=== PATIENT | female | born 1985 | race Caucasian/White ===

== ENCOUNTER 2025-02-12 16:10 | Inpatient (IN) ==
[2025-02-12 17:00] LABS: Hematocrit (blood only) 44.1 % (37.0-47.0); Hemoglobin 14.6 g/dl (12.0-16.0); Immature Granulocytes # (auto) 0.05 K/uL (0.01-0.20); Immature Granulocytes % (auto) 0.4 %; Mean Corpuscular Hemoglobin 26.1 pg (25.0-34.0); Mean Corpuscular Volume 78.8 fL (80.0-100.0); Platelet Count 488 K/uL (130-400); RDW Standard Deviation 43.5 fL (36.4-46.3); Red Blood Count 5.60 M/uL (4.20-5.40); White Blood Count 14.12 K/ul (4.8-10.8)
[2025-02-12 17:21] LABS: Alanine Aminotransferase 69.0 U/L (7-52); Albumin Globulin Ratio 1.0 (0.9-2); Alkaline Phosphatase 55.0 U/L (34-104); Anion Gap 11.0 (3-11); Bilirubin,Total 0.7 mg/dl (0.2-1.0); Blood Urea Nitrogen 7.0 mg/dl (6-23); Calcium 9.6 mg/dl (8.6-10.3); Carbon Dioxide 23.0 mmol/L (21-32); Chloride 104.0 mmol/L (98-107); Creatinine Clr Calc Pharmacy 137.9 ml/min; Globulin 3.9 gm/dl (2.5-4.0); Glucose 125.0 mg/dl (70-99(Fasting)); Potassium 3.7 mmol/L (3.5-5.1); Sodium 138.0 mmol/L (136-145); Total Protein 7.9 gm/dl (6.0-8.3)
[2025-02-12 17:29] LABS: Acetaminophen < 3 ug/ml (10-30); Salicylate < 3.0 mg/dl (3.0-30)
[2025-02-12 17:34] LABS: Thyroid Stimulating Hormone 1.359 uIu/ml (0.300-4.500)
--- NOTE | 2025-02-12 19:00 | Emergency Department Note ---
Impression & Plan Depression with suicidal ideation ED Provider Note NAME: BARRY RO AGE: 39 SEX: F : 1985 ARRIVES VIA: Walk-In INFORMANT: [Patient][, ] ED PROVIDER(S): [Eugenia Medel MD] CHIEF COMPLAINT: Depression, self-harm thoughts HPI: This is a 39-year-old female presenting for depression. Patient states that she has been off of some of her psych meds since October. She has not been in a good mental state since then. She been increasing depressed. Now has a thought to hurt herself without a plan. She has self-harm thoughts as well. She states that the longer she goes to work she think she is going to be and is concerned that she might want to act upon these thoughts. She notes numerous bouts of trauma in her life. ROS: See above HPI for pertinent positives & negatives. A total of [10] systems reviewed and were otherwise negative. PAST MEDICAL HISTORY: [See Below] PAST SURGICAL HISTORY: [See Below] FAMILY HISTORY: [See Below] SOCIAL HISTORY: [See Below] HOME MEDICATIONS: [See Below] ALLERGIES: [See Below] VITALS: See Below PHYSICAL EXAMINATION: General: resting comfortably in no acute distress Head: Normocephalic and atraumatic Eyes: Normal inspection, extraocular muscles intact Ear, nose, throat: Normal external exam Neck: Normal range of motion Respiratory: speaking in full sentences, symmetric chest rise, no respiratory distress Cardiovascular: Regular rate/rhythm Extremities: moves all extremities Neuro: The patient awake and alert, appropriately conversive, symmetric faces, no focal deficits MEDICAL DECISION MAKING: This is a 39-year-old female presenting for depression. Patient has depression, SI without plan of self-harm. She appears to be in crisis in need of inpatient stay. She is comfortable with inpatient referral at this time. With the basic blood to a process for medical screening purposes. - WBC is 14.12, platelet count 488. No life-threatening abnormalities noted on blood work - Medically clear - Patient currently pending psychiatric placement. Care discussed signout to Dr. Calzada pending placement. Differential diagnosis: Psychosis, SI, depression independent History obtained from: Mother Past Med/Surg History Problem List (Updated 02/14/25 @ 00:42 by Eugenia Medel MD) Depression with suicidal ideation (Acute) Traumatic brain injury Herpes Back pain Hyperprolactinemia Schizoaffective disorder Social History Smoking Status: Current every day smoker Tobacco Type: Cigarettes Preferred Language: Slovak Communication Ability: Effective Insulation Nozzleman Required: No Beliefs That Will Affect Care: None Feels Safe at Home: Yes Gender Identity: Female Assistive Devices: None Allergies Allergies Allergy/AdvReac Type Severity Reaction Status Date / Time cephalexin [From Keflex] Allergy Mild Hives Verified 02/12/25 20:07 prednisone AdvReac Unknown Unknown Verified 02/12/25 20:08 Home Meds Home Medications Medication Instructions Recorded Confirmed albuterol sulfate 90 mcg/actuation 90 mcg inhalation UNKNOWN 02/12/25 02/12/25 aerosol inhaler (Ventolin HFA) shortness of breath atorvastatin 80 mg tablet 80 mg PO DAILY 02/12/25 02/12/25 clonazepam 0.5 mg tablet 0.5 mg PO UNKNOWN PRN anxiety 02/12/25 02/12/25 hydrocodone 7.5 mg-acetaminophen 7.5 - 325 tab PO UNKNOWN PRN Pain 02/12/25 02/12/25 325 mg tablet metformin 500 mg tablet 500 mg PO BID 02/12/25 02/12/25 omeprazole 20 mg capsule,delayed 20 mg PO QAM 02/12/25 02/12/25 release ondansetron HCl 4 mg tablet 4 mg PO UNKNOWN PRN Nausea And 02/12/25 02/12/25 Vomiting quetiapine 200 mg tablet 200 mg PO HS 02/12/25 02/12/25 quetiapine 50 mg tablet 50 mg PO DAILY 02/12/25 02/12/25 valacyclovir 1 gram tablet 1,000 mg PO UNKNOWN PRN Herpes 02/12/25 02/12/25 outbreak Results & Data (ED) Vital Signs Vital Signs - 24 hr 02/12/25 16:12 02/12/25 18:19 Temperature 36.8 C Temperature Source Skin Pulse Rate 107 H Pulse Rate [Finger] 95 H Pulse Rhythm [Finger] Regular Pulse Strength [Finger] Normal Respiratory Rate 16 18 Respiratory Effort / Characteristics Non-Labored Spontaneous Non-Labored Spontaneous Respiratory Depth Normal Normal Respiratory Pattern Regular Regular Blood Pressure 160/100 H Blood Pressure [Left Arm] 137/92 Blood Pressure Mean 120 Blood Pressure Mean [Left Arm] 107 Blood Pressure Position [Left Arm] Sitting Pulse Oximetry 97 98 Oxygen Delivery Method Room Air Room Air Sepsis Recent Fever Within 48 Hours No Sepsis New/Unexplained Change in Mental Status N/A Sepsis Action Taken by Nursing No Action Required Laboratory Data 02/12/25 16:40 02/12/25 16:40 Lab Results 02/12/25 02/12/25 Range/Units 16:40 18:42 WBC 14.12 H (4.8-10.8) K/ul RBC 5.60 H (4.20-5.40) M/uL Hgb 14.6 (12.0-16.0) g/dl Hct 44.1 (37.0-47.0) % MCV 78.8 L (80.0-100.0) fL MCH 26.1 (25.0-34.0) pg MCHC 33.1 (32.0-36.0) g/dL RDW Std Deviation 43.5 (36.4-46.3) fL RDW Coeff of [place] 15.2 H (11.5-14.5) % Plt Count 488 H (130-400) K/uL MPV 8.9 L (9.4-12.4) fL Immature Gran % (Auto) 0.4 % Neut % (Auto) 73.5 % Lymph % (Auto) 19.3 % [place] % (Auto) 5.9 % Eos % (Auto) 0.4 % Baso % (Auto) 0.5 % Neut # (Auto) 10.39 H (1.40-6.50) K/uL Lymph # (Auto) 2.72 (1.20-3.40) K/uL [place] # (Auto) 0.84 H (0.11-0.59) K/uL Eos # (Auto) 0.05 (0.00-0.50) K/uL Baso # (Auto) 0.07 (0.00-0.20) K/uL Immature Gran # (Auto) 0.05 (0.01-0.20) K/uL Sodium 138 (136-145) mmol/L Potassium 3.7 (3.5-5.1) mmol/L Chloride 104 (98-107) mmol/L Carbon Dioxide 23 (21-32) mmol/L Anion Gap 11 (3-11) BUN 7 (6-23) mg/dl Creatinine 0.69 (0.6-1.2) mg/dl Est Cr Clr Drug Dosing 137.9 ml/min eGFR 113.85 BUN/Creatinine Ratio 10.1 (10-20) Glucose 125 H (70-99(Fasting)) mg/dl Calcium 9.6 (8.6-10.3) mg/dl Total Bilirubin 0.7 (0.2-1.0) mg/dl AST 37 (13-39) U/L ALT 69 H (7-52) U/L Alkaline Phosphatase 55 (34-104) U/L Total Protein 7.9 (6.0-8.3) gm/dl Albumin 4.0 (3.4-5.0) gm/dl Globulin 3.9 (2.5-4.0) gm/dl Albumin/Globulin Ratio 1.0 (0.9-2) TSH 1.359 (0.300-4.500) uIu/ml POC Ur Test NEG (NEG) Salicylates < 3.0 L (3.0-30) mg/dl Acetaminophen < 3 L (10-30) ug/ml Ethyl Alcohol mg/dL < 10.0 (<10.0) mg/dl Administered Medications Acetaminophen (Acetaminophen 325 Mg Tab) 650 mg PO Q4H PRN PRN Reason: Headache or Minor Fever Stop: 03/14/25 22:09 Last Admin: 02/13/25 13:21 Dose: 650 mg Documented By: Admin: 02/12/25 22:44 Dose: 650 mg Documented By: ANDRIY Atorvastatin Calcium (Atorvastatin 40 Mg Tab) 80 mg PO [facility] Stop: 03/15/25 08:59 Last Admin: 02/13/25 08:35 Dose: 80 mg Documented By: PAULETTE Clonazepam (Clonazepam 0.5 Mg Tab) 0.5 mg PO BID PRN PRN Reason: Anxiety Stop: 03/14/25 22:13 Last Admin: 02/12/25 22:42 Dose: 0.5 mg Documented By: ANDRIY Hydroxyzine HCl (Hydroxyzine Hcl 25 Mg Tab) 50 mg PO HSZ PRN PRN Reason: Insomnia Stop: 03/14/25 22:09 Last Admin: 02/13/25 02:05 Dose: 50 mg Documented By: Admin: 02/13/25 00:44 Dose: 50 mg Documented By: ANDRIY Lidocaine (Lidocaine 5% 1 Patch) 1 patch TD [facility] Stop: 03/15/25 14:14 Last Admin: 02/13/25 15:44 Dose: 1 patch Documented By: [id number] Metformin HCl (Metformin Hcl 500 Mg Tab) 500 mg PO BIDM [facility] Stop: 03/15/25 17:44 Last Admin: 02/13/25 17:37 Dose: 500 mg Documented By: [id number] Miskdaneous (Remove Nicoderm Patch) 1 each N/A DAILY@2100 JOSEF Stop: 03/15/25 20:59 Last Admin: 02/13/25 22:20 Dose: 1 each Documented By: [id number] Candecellaneous (Remove Lidoderm Patch) 1 each N/A DAILY@2100 [facility] Stop: 03/15/25 20:59 Last Admin: 02/13/25 22:20 Dose: 1 each Documented By: [id number] Nicotine (Nicotine 21 Mg/24 Hr Tdsy) [facility] Stop: 03/15/25 08:59 Last Admin: 02/13/25 10:15 Dose: 1 patch Documented By: PAULETTE Nicotine Polacrilex (Nicotine Polacrilex 2 Mg Gum) 2 piece MT Q2H PRN PRN Reason: smoking cessation Stop: 03/14/25 22:30 Last Admin: 02/13/25 21:04 Dose: 2 piece Documented By: [id number] Admin: 02/13/25 15:21 Dose: 2 piece Documented By: Admin: 02/13/25 13:23 Dose: 2 piece Documented By: Admin: 02/12/25 22:42 Dose: 2 piece Documented By: ANDRIY Quetiapine Fumarate (Quetiapine Fumarate 25 Mg Tablet) 25 mg PO [facility] Stop: 03/15/25 21:59 Last Admin: 02/13/25 22:17 Dose: 25 mg Documented By: [id number] Discharge Plan Visit Data Chief Complaint: Mental Health Evaluation Stated Complaint: REF BY ED Provider: Erick Calzada Discharge Problem: Depression with suicidal ideation Patient Disposition: Admitted As Inpatient Condition: Fair Discharge Instructions Interventions: ED Discharge Assessment Last Done: 02/12/25 21:24
[2025-02-12 19:02] LABS: Appearance Urine Clear (Clear); Bacteria Urine Automated 1+ (None Seen); Cast Urine Automated 0-2 /lpf (0-2); Glucose Urine UA Negative (Negative); RBC Urine Automated 0-2 /hpf (0-2); WBC Urine Automated 0-5 /hpf (0-5)
[2025-02-12 19:21] LABS: Amphetamines+Metham, Urine Neg (Neg); MDMA (Ecstacy), Urine Neg (Neg); Marijuana, Urine Pos (Neg)
--- NOTE | 2025-02-12 20:37 | Emergency Department Note ---
ED Visit Note 2036: Signout from Dr. Medel. 39-year-old female depressed 201. Patient medically cleared. Awaiting psychiatric evaluation and placement. 2119: Patient admitted to [facility]. .
[2025-02-12] MEDS ORDERED: MAGNESIUM HYDROXIDE SUSP 30 ML UDC PO PRN (22:10)
[2025-02-12] MEDS ORDERED: ALUMINUM/MAGNESIUM SUSP 30 ML UDC PO PRN (22:10)
[2025-02-12] MEDS ORDERED: BISMUTH SUBSALICYLATE 262 MG CHEW PO PRN (22:10)
[2025-02-12] MEDS ORDERED: SODIUM CHLORIDE 0.65% NA SOLN 45 ML (OCEAN) PRN (22:10)
[2025-02-12] MEDS: NICOTINE POLACRILEX 2 MG GUM MT PRN (22:42)
[2025-02-12] MEDS: clonazePAM 0.5 MG TAB PO PRN (22:42)
[2025-02-12] MEDS: ACETAMINOPHEN 325 MG TAB PO PRN (22:44)
[2025-02-13] MEDS: ATORVASTATIN 40 MG TAB PO SCH (08:35)
[2025-02-13] MEDS: NICOTINE 21 MG/24 HR TDSY TD SCH (10:15)
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
[2025-02-13] MEDS: LIDOCAINE 5% 1 PATCH TD SCH (15:44)
[2025-02-13] MEDS: REMOVE NICODERM PATCH SCH (22:20)
[2025-02-13] MEDS: REMOVE LIDODERM PATCH SCH (22:20)
[2025-02-14 08:14] LABS: Hemoglobin A1C 6.1 % (4.5-5.6)
[2025-02-14 08:21] LABS: Cholesterol 182.0 mg/dl (0-200); HDL Cholesterol 39.0 mg/dl; Triglycerides 123.0 mg/dl (0-150)
[2025-02-14] MEDS ORDERED: BENZOCAINE 20% (ORAJEL) 11.9 GM TUBE MT PRN (11:17)
--- NOTE | 2025-02-14 13:52 | Psychiatric Progress Note ---
Date of Service February 14, 2025 Impression / Recommendations Impression By history, Schizoaffective Disorder Bipolar Type vs Mood/Psychotic Disorder due to Traumatic Brain Injury. Possible contribution from use of cannabis. r/o Generalized Anxiety Disorder. R/o Right big toe paronychia. Mouth Ulcers. Overall I spent a total of 35 minutes on this assessment including review of chart records, discussion in team meeting,obtaining collateral information, review of lab work, direct evaluation of the patient, counseling the patient, ordering medication, risk assessment, and documentation in the electronic health record. (1) Schizoaffective disorder: (2) Hyperprolactinemia: (3) Back pain: (4) Herpes: (5) Traumatic brain injury: Plan 02/14/25 Monitor BP. Increased Seroquel to 50mg qhs. Orajel prn for mouth ulcers Hospitalist consult requested for right big toe inflammation. 02/13/25 Admitted to [facility] ([facility]) on q15 min checks (behavioral with suicide precautions) for safety. Group, recreational, and milieu therapies + individual and family sessions as appropriate. HBA1c, fasting lipid profile, prolactin level ordered. Resume Seroquel 25mg qhs with plan to titrate as tolerated. Have discussed alternatives such as Lamictal. Continue prn clonazepam for anxiety. Next Invega Hayfera shot due late April/early May (last administered Dec 02 2024). Continue other home medications at current doses. Inventory Assets Strengths: History of being engaged in treatment. Supportive mother and boyfriend. Stable housing. Good response to medication. Denied suicide attempts. Needs: Stabilization. Suicide Risk Level Suicide Risk Level: Moderate (q15 min suicide checks) Risk Factors Assessment Male: No : Yes Do You Have Access To A Gun?: No Health Problems: Yes Mental Health Diagnoses: Yes Substance Use Disorders: No (occasional cannabis use reported) Previous Attempt: No Family History of Suicide: Yes Previous Psychiatric Hospitalization: Yes Hopelessness: No Protective Factors Assessment : No (stable relationship since 2019) Responsible for Young Children: No Employed: No Stable Relationships: Yes Supportive Family: Yes Good Rapport with Provider: Yes Absence of Any Risk Factors Above: No Interval History Identifying Information 39-year-old F who currently lives in with her mother and boyfriend, has a history of Schizoaffective disorder, s/p TBI, irregular menstrual cycles, herpes. She was admitted on 02/12/25 21:31 on a 201 voluntary commitment for depressed mood, panic symptoms, and suicidal ideation over the past 3months. Chief Complaint "My mouth hurts and I have something wrong with my toe". Review of Systems Notes Right big toe examined: some signs of inflammation noted: toe skin is reddened around the bed of the toenail. Not warm to touch. Slight fluctuance noted. Looks inflamed compared to the left big toe. Pt reports pain on light palpation. Sleep Information Total Hours of Sleep: 6 Meal Information Percent Meal Consumed - Breakfast: 100 Percent Meal Consumed - Lunch: 80 Percent Meal Consumed - Dinner: 50 Subjective Subjective Patient was seen & assessed and interval progress reviewed with treatment team. Staff reports she was tearful last night when she couldn't reach her mom. She expressed feeling anxious but mood improved after she processed with staff. She attended groups and engaged well with peers and in unit activities. She denied paranoia but remains anxious and dysphoric in her mood. The morning, she complained of pain in her gums from ulcers. She also complained of her right big toe appearing black. BP noted to be elevated this morning (160s-170s/90s - 110s). Repeat BP at 1402hrs: 140/85 pulse 97. Labs: HBA1c 6.1, fasting blood sugar 102, fasting lipids within normal limits Prolactin level 47.68 (within normal limits). Physical Exam Psychiatric Orientation: alert, oriented to person, oriented to place, oriented to time and cooperative Apperance: appropriately dressed, appropriately groomed and appeared stated age Eye Contact: good eye contact Motor Behavior: steady gait and station and no abnormal motor movements Speech: normal rate/rhythm/volume of speech Affect: + depressed affect, + anxious affect and mood congruent with affect Mood: + depressed mood, + anxious mood and + dysphoric mood Thought Process: goal directed thought process, clear/coherent thought process and + circumstantial thought process Thought Content: + preoccupation Suicidal Thoughts: denies suicidal thoughts, denies suicidal plan and denies suicidal intent Homicidal Thoughts: denies homicidal thoughts, denies homicidal plan and denies homicidal intent Hallucinations: + auditory hallucinations, + visual hallucinations and + tactile hallucinations Cognition: recent memory grossly intact, remote memory grossly intact, attention grossly intact and language grossly intact Estimated Intelligence: average estimated intelligence and consistent with education level Insight: good insight Judgment: good judgement Vital Signs (Past 24 Hours) Last Vital Signs Temp 36.9 C 02/14/25 06:28 Pulse 82 02/14/25 06:28 Resp 18 02/14/25 06:28 BP 171/116 H 02/14/25 06:28 Pulse Ox 96 02/14/25 06:28 O2 Del Method Room Air 02/14/25 06:28 Results & Data ([facility]) Laboratory Results Laboratory Results - last 24 hr 02/14/25 07:49 Fasting Glucose 102 H Estimat Average Glucose 128 Hemoglobin A1c 6.1 H Triglycerides 123 Cholesterol 182 LDL Cholesterol, Calc 118 VLDL Cholesterol, Calc 25 HDL Cholesterol 39 Cholesterol/HDL Ratio 4.7 Prolactin 47.68 Current Inpatient Medications Current Inpatient Medications: Current Inpatient Medications Acetaminophen (Acetaminophen 325 Mg Tab) 650 mg PO Q4H PRN PRN Reason: Headache or Minor Fever Stop: 03/14/25 22:09 Last Admin: 02/13/25 13:21 Dose: 650 mg Al Hydrox/Mg Hydrox/Simethicone (Aluminum/Magnesium Susp 30 Ml Udc) 30 ml PO Q4H PRN PRN Reason: GI Upset Stop: 03/14/25 22:09 Atorvastatin Calcium (Atorvastatin 40 Mg Tab) 80 mg PO QAM JOSEF Stop: 03/15/25 08:59 Last Admin: 02/14/25 09:03 Dose: 80 mg Benzocaine (Benzocaine 20% (Orajel) 11.9 Gm Tube) 1 appln MT Q6H PRN PRN Reason: To gum ulcers Stop: 03/16/25 11:16 Bismuth Subsalicylate (Bismuth Subsalicylate 262 Mg Chew) 2 tab PO Q30M PRN PRN Reason: Loose Stool/Diarrhea Stop: 03/14/25 22:09 Clonazepam (Clonazepam 0.5 Mg Tab) 0.5 mg PO BID PRN PRN Reason: Anxiety Stop: 03/14/25 22:13 Last Admin: 02/12/25 22:42 Dose: 0.5 mg Hydroxyzine HCl (Hydroxyzine Hcl 25 Mg Tab) 50 mg PO HSZ PRN PRN Reason: Insomnia Stop: 03/14/25 22:09 Last Admin: 02/13/25 02:05 Dose: 50 mg Hydroxyzine HCl (Hydroxyzine Hcl 25 Mg Tab) 25 mg PO Q4H PRN PRN Reason: Anxiety Stop: 03/14/25 22:09 Lidocaine (Lidocaine 5% 1 Patch) 1 patch TD QAM COUNT INCLUDES [facility] Stop: 03/15/25 14:14 Last Admin: 02/14/25 09:03 Dose: 1 patch Magnesium Hydroxide (Magnesium Hydroxide Susp 30 Ml Udc) 30 ml PO DAILY PRN PRN Reason: Constipation Stop: 03/14/25 22:09 Metformin HCl (Metformin Hcl 500 Mg Tab) 500 mg PO BIDM COUNT INCLUDES THE [facility] Stop: 03/15/25 17:44 Last Admin: 02/14/25 09:04 Dose: 500 mg Miscellaneous (Remove Nicoderm Patch) 1 each N/A DAILY@2099 COUNT INCLUDES THE [facility] Stop: 03/15/25 20:59 Last Admin: 02/13/25 22:20 Dose: 1 each Miscellaneous (Remove Lidoderm Patch) 1 each N/A DAILY@2100 COUNT INCLUDES THE [facility] Stop: 03/15/25 20:59 Last Admin: 02/13/25 22:20 Dose: 1 each Nicotine (Nicotine 21 Mg/24 Hr Tdsy) 1 patch TD QAM COUNT INCLUDES THE [facility] Stop: 03/15/25 08:59 Last Admin: 02/14/25 09:04 Dose: 1 patch Nicotine Polacrilex (Nicotine Polacrilex 2 Mg Gum) 2 piece MT Q2H PRN PRN Reason: smoking cessation Stop: 03/14/25 22:30 Last Admin: 02/14/25 13:38 Dose: 1 piece Quetiapine Fumarate (Quetiapine Fumarate 25 Mg Tablet) 50 mg PO HS COUNT INCLUDES THE [facility] Stop: 03/16/25 21:59 Sodium Chloride (Sodium Chloride 0.65% Na Soln 45 Ml ([place])) 1 - 2 sprays NA PRN PRN PRN Reason: Nasal Dryness/Congestion Stop: 03/14/25 22:09 Mental Health & Subst Abuse Tx Psychiatrist Name of Psychiatrist: Dr. Damian Juarez Psychiatrist's Therapist Name of Therapist: n/a Software Test Analyst Name of Software Test Analyst: n/a Post Discharge Appointments Primary Care Physician Name Of Family Doctor/PCP: Dr. Pond Primary Care Contact Information Discharge Discharge Address: [address] [place] [address]
--- NOTE | 2025-02-15 09:37 | Psychiatric Progress Note ---
Date of Service February 15, 2025 Impression / Recommendations Impression Diagnostically consistent with Schizoaffective Disorder Bipolar Type vs Mood/Psychotic Disorder due to Traumatic Brain Injury. Possible contribution from use of cannabis. Also suspect Generalized Anxiety Disorder. A: Some improvement in SI and psychosis but she remains anxious and easily overwhelmed with some thought blocking. Struggles to organize her thoughts and identify ongoing symptoms. 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 Hospitalist recommending amlodipine trial for elevated BP so will start this. Tolerating higher dose of Seroquel with some improvement in sleep. Overall, I spent a total of 50 minutes on this case including meeting with the patient, reviewing the chart, nursing report, multidisciplinary team meeting, orders, and documentation. (1) Schizoaffective disorder: (2) Hyperprolactinemia: (3) Back pain: (4) Herpes: (5) Traumatic brain injury: Plan 02/15/2025: -Start amlodipine 5mg daily -Podiatry consult Monday, appreciate hospitalist recommendations, will offer foot soaks as possible 02/14/25 Monitor BP. Increased Seroquel to 50mg qhs. Orajel prn for mouth ulcers Hospitalist consult requested for right big toe inflammation. 02/13/[address] [facility] ([facility]) on q15 min checks (behavioral with suicide precautions) for safety. Group, recreational, and milieu therapies + individual and family sessions as appropriate. HBA1c, fasting lipid profile, prolactin level ordered. Resume Seroquel 25mg qhs with plan to titrate as tolerated. Have discussed alternatives such as Lamictal. Continue prn clonazepam for anxiety. Next Invega Hayfera shot due late April/early May (last administered Dec 02 2024). Continue other home medications at current doses. Inventory Assets Strengths: History of being engaged in treatment. Supportive mother and boyfriend. Stable housing. Good response to medication. Denied suicide attempts. Needs: Stabilization. Suicide Risk Level Suicide Risk Level: Moderate (q15 min suicide checks) (depression with SI but lessening and feels safe and able to ask for support) Risk Factors Assessment Male: No : Yes Do You Have Access To A Gun?: No Health Problems: Yes Mental Health Diagnoses: Yes Substance Use Disorders: No (occasional cannabis use reported) Previous Attempt: No Family History of Suicide: Yes Previous Psychiatric Hospitalization: Yes Hopelessness: No Protective Factors Assessment : No (stable relationship since 2019) Responsible for Young Children: No Employed: No Stable Relationships: Yes Supportive Family: Yes Good Rapport with Provider: Yes Absence of Any Risk Factors Above: No Interval History Identifying Information 39-year-old F who currently lives in with her mother and boyfriend, has a history of Schizoaffective disorder, s/p TBI, irregular menstrual cycles, herpes. She was admitted on 02/12/25 21:31 on a 201 voluntary commitment for depressed mood, panic symptoms, and suicidal ideation over the past 3months. Chief Complaint "Ok". Review of Systems Sleep Information Total Hours of Sleep: 6.25 Meal Information Percent Meal Consumed - Breakfast: 100 Percent Meal Consumed - Lunch: 80 Percent Meal Consumed - Dinner: 100 Subjective Subjective Patient was seen & assessed and interval progress reviewed with nursing and social work. Attending groups. Some anxiety last evening and got prn Klonopin dose. Today reports some improvement in SI and psychotic symptoms since admission. Notes reduced pacing and restlessness, but still "talking at people a lot". Concerned about symptom management between long-acting injectable doses, experiencing tearfulness, agitation, and mood swings as medication wears off. Reports Seroquel dose increase helpful for sleep but she's not sure it will help with mood fluctuations. Denies voices or reality distortion. Notes excessive sweating in mornings and increased heat sensations, she wonders if this is related to her blood pressure. Seen by hospitalist for new issue with right big toenail redness and irritation. She reports poor response to po risperidone and po Invega in the past between Invega KARIMI doses. Physical Exam Psychiatric Orientation: alert, oriented to person, oriented to place, oriented to time and cooperative Apperance: appropriately dressed, appropriately groomed and appeared stated age Eye Contact: good eye contact Motor Behavior: steady gait and station and no abnormal motor movements Speech: normal rate/rhythm/volume of speech Affect: + depressed affect, + anxious affect and mood congruent with affect Mood: + depressed mood and + anxious mood Thought Process: + circumstantial thought process and + concrete thought process Thought Content: + preoccupation Suicidal Thoughts: denies suicidal thoughts, denies suicidal plan and denies suicidal intent Homicidal Thoughts: denies homicidal thoughts, denies homicidal plan and denies homicidal intent Hallucinations: no auditory hallucinations, no visual hallucinations and no tactile hallucinations Cognition: recent memory grossly intact, remote memory grossly intact, attention grossly intact and language grossly intact Insight: + limited insight Judgment: + fair judgement Vital Signs (Past 24 Hours) Last Vital Signs Temp 36.6 C 02/15/25 06:00 Pulse 103 H 02/15/25 06:28 Resp 18 02/15/25 06:00 BP 162/111 H 02/15/25 06:28 Pulse Ox 99 02/15/25 06:00 O2 Del Method Room Air 02/15/25 06:00 Results & Data ([facility]) Laboratory Results Laboratory Results - last 24 hr 02/14/25 19:30 POC Glucose 108 H Current Inpatient Medications Current Inpatient Medications: Current Inpatient Medications Acetaminophen (Acetaminophen 325 Mg Tab) 650 mg PO Q4H PRN PRN Reason: Headache or Minor Fever Stop: 03/14/25 22:09 Last Admin: 02/13/25 13:21 Dose: 650 mg Al Hydrox/Mg Hydrox/Simethicone (Aluminum/Magnesium Susp 30 Ml Udc) 30 ml PO Q4H PRN PRN Reason: GI Upset Stop: 03/14/25 22:09 Atorvastatin Calcium (Atorvastatin 40 Mg Tab) 80 mg PO QAM JOSEF Stop: 03/15/25 08:59 Last Admin: 02/15/25 09:07 Dose: 80 mg Benzocaine (Benzocaine 20% (Orajel) 11.9 Gm Tube) 1 appln MT Q6H PRN PRN Reason: To gum ulcers Stop: 03/16/25 11:16 Bismuth Subsalicylate (Bismuth Subsalicylate 262 Mg Chew) 2 tab PO Q30M PRN PRN Reason: Loose Stool/Diarrhea Stop: 03/14/25 22:09 Clonazepam (Clonazepam 0.5 Mg Tab) 0.5 mg PO BID PRN PRN Reason: Anxiety Stop: 03/14/25 22:13 Last Admin: 02/14/25 19:33 Dose: 0.5 mg Hydroxyzine HCl (Hydroxyzine Hcl 25 Mg Tab) 50 mg PO HSZ PRN PRN Reason: Insomnia Stop: 03/14/25 22:09 Last Admin: 02/13/25 02:05 Dose: 50 mg Hydroxyzine HCl (Hydroxyzine Hcl 25 Mg Tab) 25 mg PO Q4H PRN PRN Reason: Anxiety Stop: 03/14/25 22:09 Lidocaine (Lidocaine 5% 1 Patch) 1 patch TD QAM [facility] Stop: 03/15/25 14:14 Last Admin: 02/15/25 08:22 Dose: 1 patch Magnesium Hydroxide (Magnesium Hydroxide Susp 30 Ml Udc) 30 ml PO DAILY PRN PRN Reason: Constipation Stop: 03/14/25 22:09 Metformin HCl (Metformin Hcl 500 Mg Tab) 500 mg PO BIDM [facility] Stop: 03/15/25 17:44 Last Admin: 02/15/25 09:07 Dose: 500 mg Miscellaneous (Remove Nicoderm Patch) 1 each N/A DAILY@2100 [facility] Stop: 03/15/25 20:59 Last Admin: 02/15/25 08:22 Dose: 1 each Miscellaneous (Remove Lidoderm Patch) 1 each N/A DAILY@2100 JOSEF Stop: 03/15/25 20:59 Last Admin: 02/15/25 08:21 Dose: 1 each Nicotine (Nicotine 21 Mg/24 Hr Tdsy) 1 patch TD QAM [facility] Stop: 03/15/25 08:59 Last Admin: 02/15/25 08:17 Dose: 1 patch Nicotine Polacrilex (Nicotine Polacrilex 2 Mg Gum) 2 piece MT Q2H PRN PRN Reason: smoking cessation Stop: 03/14/25 22:30 Last Admin: 02/14/25 13:38 Dose: 1 piece Quetiapine Fumarate (Quetiapine Fumarate 25 Mg Tablet) 50 mg PO HS [facility] Stop: 03/16/25 21:59 Last Admin: 02/14/25 22:17 Dose: 50 mg Sodium Chloride (Sodium Chloride 0.65% Na Soln 45 Ml ([place])) 1 - 2 sprays NA PRN PRN PRN Reason: Nasal Dryness/Congestion Stop: 03/14/25 22:09 Mental Health & Subst Abuse Tx Psychiatrist Name of Psychiatrist: Dr. Damian Juarez Psychiatrist's Therapist Name of Therapist: n/a Static Balancer Name of Static Balancer: n/a Post Discharge Appointments Primary Care Physician Name Of Family Doctor/PCP: Dr. Pond Primary Care Contact Information Discharge Discharge Address: [address] [place] [address] [place] [id number]
--- NOTE | 2025-02-15 09:57 | Consultation ---
Date of Consultation February 15, 2025 Assessment & Plan (1) Toe pain, right: (2) Pincer nail deformity: Plan Ms. Triana is a 39 year old woman with history of HLD, DMTII, GERD, Bipolar disorder who is currently admitted to [facility] for management of mood disorder for depressed mood and SI. Medicine consulted for concerns of right great toe redness and inflammation. On exam, there does not appear to be signs of infection/cellulitis. The nail is thick and does appear to be pinching inward along the longitudinal axis. Contingent on anticipated duration of admission, can consider podiatry as this can cause discomfort and can be progressive in nature. As far as blood pressure, multiple contributing/cofounding factors given nature of current admission. If sustaining >140, could consider addition of amlodipine 5mg (or Lisinopril 2.5mg) depending on other medications being adjusted at this time. Would recommend PCP follow up upon D/C. #Right great toe, #Recurrent ingrown toenail follows [facility] Last removal 10/2024, appears to follow with podiatry every 3-6 months for removal Can consider podiatry consultation No oral abx at this time, if able to facilitate offer warm, soapy water soaks for 10-20minutes and apply Neosporin or bacitracin BID #HTN can consider starting amlodipine 5mg, will take approximately 24-48 hours to take effect -noting that she does have chronic ankle swelling, can consider lisinopril 2.5mg daily consider other factors contributing, no IV medications required unless BP sustaining > 180 SBP #Diabetes Mellitus Type II 6.7 in 2019, now controlled on metformin 500mg bid A1C 6.1% continue lifestyle modifications and metformin #HLD continue statin #COPD not in exacerbation continue inhaler Thank you for this consultation. We will sign off at this time. You can reach a member of the [facility] Hospitalist Team 20/02 via ITDatabase History of Present Illness Requesting Physician: Dr. Vick Reason for Consultation: Right great toe pain Attending Physician: Raven Vick MD History of Present Illness Ms. Triana is a 39 year old woman with history of HLD, DMTII, GERD, Bipolar disorder who is currently admitted to [facility] for management of mood disorder for depressed mood and SI. Medicine consulted for concerns of reported right great toe redness and inflammation. Patient with history of ingrown toenail in right foot and follows Podiatry cons istently, with removal every 3-6 months. Patient states she has trimmed her toenail on her own about a month ago and it has been irritating ever since. She denies any drainage, fevers, chills. She notes that left left great toenail, second toenail and fourth toenail were all removed due to the nails "being too thick and pinching" her. She denies any headaches at this time, visual changes, chest pain, or other concerns. Blood pressure ranging in the 120-160s, heart rates in 60-100s, afebrile, and saturating well on room air. Allergies Allergy/AdvReac Type Severity Reaction Status Date / Time cephalexin [From Keflex] Allergy Mild Hives Verified 02/12/25 20:07 prednisone AdvReac Unknown Unknown Verified 02/12/25 20:08 Home Medications Medication Instructions Recorded Confirmed Type albuterol sulfate 90 mcg/actuation 90 mcg inhalation UNKNOWN 02/12/25 02/12/25 History aerosol inhaler (Ventolin HFA) shortness of breath atorvastatin 80 mg tablet 80 mg PO DAILY 02/12/25 02/12/25 History clonazepam 0.5 mg tablet 0.5 mg PO UNKNOWN PRN anxiety 02/12/25 02/12/25 History hydrocodone 7.5 mg-acetaminophen 7.5 - 325 tab PO UNKNOWN PRN Pain 02/12/25 02/12/25 History 325 mg tablet metformin 500 mg tablet 500 mg PO BID 02/12/25 02/12/25 History omeprazole 20 mg capsule,delayed 20 mg PO QAM 02/12/25 02/12/25 History release ondansetron HCl 4 mg tablet 4 mg PO UNKNOWN PRN Nausea And 02/12/25 02/12/25 History Vomiting quetiapine 200 mg tablet 200 mg PO HS 02/12/25 02/12/25 History quetiapine 50 mg tablet 50 mg PO DAILY 02/12/25 02/12/25 History valacyclovir 1 gram tablet 1,000 mg PO UNKNOWN PRN Herpes 02/12/25 02/12/25 History outbreak Patient History Social History Smoking Status: Current every day smoker Tobacco Type: Cigarettes Preferred Language: Japanese Communication Ability: Effective Business Team Leader Required: No Beliefs That Will Affect Care: None Feels Safe at Home: Yes Gender Identity: Female Assistive Devices: None Review of Systems Review of Systems: All systems reviewed & are unremarkable except as noted in HPI & below Physical Exam Physical Exam: GENERAL APPEARANCE: AxOx3, no acute distress. HEENT: NC, AT. MMM. EOMI, clear conjunctiva HEART: Normal rate and regular rhythm, normal S1/S1, no m/r/g LUNGS: CTAB, moving air well. No crackles or wheezes are heard. ABDOMEN: Soft, nontender, nondistended with good bowel sounds heard. BACK: No CVAT, no obvious deformity. EXTREMITIES: Without cyanosis, clubbing or edema. NEUROLOGICAL: Grossly nonfocal. Alert and oriented, moving all 4 extremities. CN not formally tested but appear grossly intact. Observed to ambulate with normal gait. Skin: Warm and dry without any rash. FOOT: Right great toenail with noted thickening and inward curvature, some mild erythema along medial edge, slight tenderness with deep palpation, but no purulence expressed when manipulating the nail fold nor discomfort, no foul odor, no other wounds or lesions noted of right foot; left foot with toenail removed on 1st/2nd/4th digits. no wounds or lesions noted. Results & Data Vital Signs (Past 12 Hours) Vital Signs Temp Pulse Resp BP Pulse Ox O2 Del Method 02/15/25 06:28 103 H 162/111 H 02/15/25 06:00 36.6 C 91 H 18 175/111 H 99 Room Air Medications Administered Home Medications Medication Instructions Recorded Confirmed Last Taken albuterol sulfate 90 mcg/actuation 90 mcg inhalation UNKNOWN 02/12/25 02/12/25 Unknown aerosol inhaler (Ventolin HFA) shortness of breath atorvastatin 80 mg tablet 80 mg PO DAILY 02/12/25 02/12/25 Unknown clonazepam 0.5 mg tablet 0.5 mg PO UNKNOWN PRN anxiety 02/12/25 02/12/25 02/12/25 14:00 hydrocodone 7.5 mg-acetaminophen 7.5 - 325 tab PO UNKNOWN PRN Pain 02/12/25 02/12/25 Unknown 325 mg tablet metformin 500 mg tablet 500 mg PO BID 02/12/25 02/12/25 02/12/25 09:30 omeprazole 20 mg capsule,delayed 20 mg PO QAM 02/12/25 02/12/25 Unknown release ondansetron HCl 4 mg tablet 4 mg PO UNKNOWN PRN Nausea And 02/12/25 02/12/25 Unknown Vomiting quetiapine 200 mg tablet 200 mg PO HS 02/12/25 02/12/25 Unknown quetiapine 50 mg tablet 50 mg PO DAILY 02/12/25 02/12/25 Unknown valacyclovir 1 gram tablet 1,000 mg PO UNKNOWN PRN Herpes 02/12/25 02/12/25 Unknown outbreak Active Medications Generic Name Dose Route Start Last Admin Trade Name Freq PRN Reason Stop Dose Admin Acetaminophen 650 mg 02/12/25 22:10 02/13/25 13:21 Acetaminophen 325 Mg Tab PO 03/14/25 22:09 650 mg Q4H PRN Administration Headache or Minor Fever Atorvastatin Calcium 80 mg 02/13/25 09:00 02/15/25 09:07 Atorvastatin 40 Mg Tab PO 03/15/25 08:59 80 mg QAM JOSEF Administration Clonazepam 0.5 mg 02/12/25 22:14 02/14/25 19:33 Clonazepam 0.5 Mg Tab PO 03/14/25 22:13 0.5 mg BID PRN Administration Anxiety Hydroxyzine HCl 50 mg 02/12/25 22:10 02/13/25 02:05 Hydroxyzine Hcl 25 Mg Tab PO 03/14/25 22:09 50 mg HSZ PRN Administration Insomnia Lidocaine 1 patch 02/13/25 14:15 02/15/25 08:22 Lidocaine 5% 1 Patch TD 03/15/25 14:14 1 patch QAM JOSEF Administration Metformin HCl 500 mg 02/13/25 17:45 02/15/25 09:07 Metformin Hcl 500 Mg Tab PO 03/15/25 17:44 500 mg BIDM JOSEF Administration Miscellaneous 1 each 02/13/25 21:00 02/15/25 08:22 Remove Nicoderm Patch N/A 03/15/25 20:59 1 each DAILY@2100 JOSEF Administration Miscellaneous 1 each 02/13/25 21:00 02/15/25 08:21 Remove Lidoderm Patch N/A 03/15/25 20:59 1 each DAILY@2100 JOSEF Administration Nicotine 1 patch 02/13/25 09:00 02/15/25 08:17 Nicotine 21 Mg/24 Hr Tdsy TD 03/15/25 08:59 1 patch QAM JOSEF Administration Nicotine Polacrilex 2 piece 02/12/25 22:31 02/14/25 13:38 Nicotine Polacrilex 2 Mg Gum MT 03/14/25 22:30 1 piece Q2H PRN Administration smoking cessation Quetiapine Fumarate 50 mg 02/14/25 22:00 02/14/25 22:17 Quetiapine Fumarate 25 Mg Tablet PO 03/16/25 21:59 50 mg HS JOSEF Administration
[2025-02-16 05:14] LABS: Marijuana Quant, GCMS Urine 275 ng/mL (<5)
--- NOTE | 2025-02-16 09:34 | Psychiatric Progress Note ---
Date of Service February 16, 2025 Impression / Recommendations Impression Diagnostically consistent with Schizoaffective Disorder Bipolar Type vs Mood/Psychotic Disorder due to Traumatic Brain Injury. Possible contribution from use of cannabis. Also suspect Generalized Anxiety Disorder. A: Mood showing some improvement, still some concern for possible thought blocking. Discussed medication treatment options in detail. Discussed risks, benefits and alternatives. Patient would like to start and consented to lamictal for mood stabilization. Reviewed side effects including but not limited to: potential for fatal rash/rolly Anthony syndrome, need to discontinue should this occur and seek immediate medical attention, need for adherence and to not restart without discussing with provider if she misses more than three days and slow titration. Overall, I spent a total of 35 minutes on this case including meeting with the patient, reviewing the chart, nursing report, multidisciplinary team meeting, orders, and documentation. (1) Schizoaffective disorder: (2) Hyperprolactinemia: (3) Back pain: (4) Herpes: (5) Traumatic brain injury: Plan 02/16/2025: -Start lamictal 25mg HS 02/15/2025: -Start amlodipine 5mg daily -Podiatry consult in outpatient setting, appreciate hospitalist recommendations, will offer foot soaks as possible 02/14/25 Monitor BP. Increased Seroquel to 50mg qhs. Orajel prn for mouth ulcers Hospitalist consult requested for right big toe inflammation. 02/13/[address] [facility] on q15 min checks (behavioral with suicide precautions) for safety. Group, recreational, and milieu therapies + individual and family sessions as appropriate. HBA1c, fasting lipid profile, prolactin level ordered. Resume Seroquel 25mg qhs with plan to titrate as tolerated. Have discussed alternatives such as Lamictal. Continue prn clonazepam for anxiety. Next Invega Hayfera shot due late April/early May (last administered Dec 02 2024). Continue other home medications at current doses. Inventory Assets Strengths: History of being engaged in treatment. Supportive mother and boyfriend. Stable housing. Good response to medication. Denied suicide attempts. Needs: Stabilization. Suicide Risk Level Suicide Risk Level: Moderate (q15 min suicide checks) (depression with SI but lessening and feels safe and able to ask for support) Risk Factors Assessment Male: No : Yes Do You Have Access To A Gun?: No Health Problems: Yes Mental Health Diagnoses: Yes Substance Use Disorders: No (occasional cannabis use reported) Previous Attempt: No Family History of Suicide: Yes Previous Psychiatric Hospitalization: Yes Hopelessness: No Protective Factors Assessment : No (stable relationship since 2019) Responsible for Young Children: No Employed: No Stable Relationships: Yes Supportive Family: Yes Good Rapport with Provider: Yes Absence of Any Risk Factors Above: No Interval History Identifying Information 39-year-old F who currently lives in with her mother and boyfriend, has a history of Schizoaffective disorder, s/p TBI, irregular menstrual cycles, herpes. She was admitted on 02/12/25 21:31 on a 201 voluntary commitment for depressed mood, panic symptoms, and suicidal ideation over the past 3months. Chief Complaint "Alright". Review of Systems Sleep Information Total Hours of Sleep: 7.5 Meal Information Percent Meal Consumed - Breakfast: 100 Percent Meal Consumed - Lunch: 90 Percent Meal Consumed - Dinner: 100 Subjective Subjective Patient was seen & assessed and interval progress reviewed with nursing and social work. Attending groups, rated her mood as "tired" last evening. Asked for dose of prn Klonopin last evening. Today reports her mood is "alright". Denies any medication side effects, sleeping better with Seroquel. Interested in trying lamictal for additional mood stabilization and to reduce symptoms between KARIMI doses. Reports some nasal congestion, dryness today. Physical Exam Psychiatric Orientation: alert, oriented to person, oriented to place, oriented to time and cooperative Apperance: appropriately dressed, appropriately groomed and appeared stated age Eye Contact: good eye contact Motor Behavior: steady gait and station and no abnormal motor movements Speech: normal rate/rhythm/volume of speech Affect: + depressed affect, + anxious affect and mood congruent with affect Mood: + depressed mood Thought Process: + thought blocking and + concrete thought process Thought Content: + preoccupation Suicidal Thoughts: denies suicidal thoughts, denies suicidal plan and denies suicidal intent Homicidal Thoughts: denies homicidal thoughts, denies homicidal plan and denies homicidal intent Hallucinations: no auditory hallucinations, no visual hallucinations and no tactile hallucinations Cognition: recent memory grossly intact, remote memory grossly intact, attention grossly intact and language grossly intact Insight: + limited insight Judgment: + fair judgement Vital Signs (Past 24 Hours) Last Vital Signs Temp 36.4 C 02/16/25 03:30 Pulse 78 02/16/25 03:31 Resp 17 02/16/25 03:30 BP 123/89 02/16/25 03:31 Pulse Ox 96 02/16/25 03:30 O2 Del Method Room Air 02/16/25 03:30 Results & Data ([facility]) Laboratory Results Laboratory Results - last 24 hr 02/12/25 Unknown U Marijuana THC Carboxy 275 H Drug Screen Comment SEE NOTE Current Inpatient Medications Current Inpatient Medications: Current Inpatient Medications Acetaminophen (Acetaminophen 325 Mg Tab) 650 mg PO Q4H PRN PRN Reason: Headache or Minor Fever Stop: 03/14/25 22:09 Last Admin: 02/16/25 07:14 Dose: 650 mg Al Hydrox/Mg Hydrox/Simethicone (Aluminum/Magnesium Susp 30 Ml Udc) 30 ml PO Q4H PRN PRN Reason: GI Upset Stop: 03/14/25 22:09 Amlodipine Besylate (Amlodipine Besylate 5 Mg Tab) 5 mg PO QAM JOSEF Stop: 03/18/25 08:59 Last Admin: 02/16/25 08:35 Dose: 5 mg Atorvastatin Calcium (Atorvastatin 40 Mg Tab) 80 mg PO QAM JOSEF Stop: 03/15/25 08:59 Last Admin: 02/16/25 08:35 Dose: 80 mg Benzocaine (Benzocaine 20% (Orajel) 11.9 Gm Tube) 1 appln MT Q6H PRN PRN Reason: To gum ulcers Stop: 03/16/25 11:16 Bismuth Subsalicylate (Bismuth Subsalicylate 262 Mg Chew) 2 tab PO Q30M PRN PRN Reason: Loose Stool/Diarrhea Stop: 03/14/25 22:09 Clonazepam (Clonazepam 0.5 Mg Tab) 0.5 mg PO BID PRN PRN Reason: Anxiety Stop: 03/14/25 22:13 Last Admin: 02/14/25 19:33 Dose: 0.5 mg Hydroxyzine HCl (Hydroxyzine Hcl 25 Mg Tab) 50 mg PO HSZ PRN PRN Reason: Insomnia Stop: 03/14/25 22:09 Last Admin: 02/13/25 02:05 Dose: 50 mg Hydroxyzine HCl (Hydroxyzine Hcl 25 Mg Tab) 25 mg PO Q4H PRN PRN Reason: Anxiety Stop: 03/14/25 22:09 Lidocaine (Lidocaine 5% 1 Patch) 1 patch TD QAM [facility] Stop: 03/15/25 14:14 Last Admin: 02/16/25 08:35 Dose: 1 patch Magnesium Hydroxide (Magnesium Hydroxide Susp 30 Ml Udc) 30 ml PO DAILY PRN PRN Reason: Constipation Stop: 03/14/25 22:09 Metformin HCl (Metformin Hcl 500 Mg Tab) 500 mg PO BIDM [facility] Stop: 03/15/25 17:44 Last Admin: 02/16/25 08:35 Dose: 500 mg Miscellaneous (Remove Nicoderm Patch) 1 each N/A DAILY@2099 [facility] Stop: 03/15/25 20:59 Last Admin: 02/15/25 08:22 Dose: 1 each Miscellaneous (Remove Lidoderm Patch) 1 each N/A DAILY@2100 JOSEF Stop: 03/15/25 20:59 Last Admin: 02/15/25 08:21 Dose: 1 each Nicotine (Nicotine 21 Mg/24 Hr Tdsy) 1 patch TD QAM [facility] Stop: 03/15/25 08:59 Last Admin: 02/16/25 08:36 Dose: 1 patch Nicotine Polacrilex (Nicotine Polacrilex 2 Mg Gum) 2 piece MT Q2H PRN PRN Reason: smoking cessation Stop: 03/14/25 22:30 Last Admin: 02/14/25 13:38 Dose: 1 piece Quetiapine Fumarate (Quetiapine Fumarate 25 Mg Tablet) 50 mg PO HS [facility] Stop: 03/16/25 21:59 Last Admin: 02/15/25 22:07 Dose: 50 mg Sodium Chloride (Sodium Chloride 0.65% Na Soln 45 Ml (Bryan)) 1 - 2 sprays NA PRN PRN PRN Reason: Nasal Dryness/Congestion Stop: 03/14/25 22:09 Mental Health & Subst Abuse Tx Psychiatrist Name of Psychiatrist: Dr. Damian Juarez Psychiatrist's Therapist Name of Therapist: n/a Production Control Planner Name of Production Control Planner: n/a Post Discharge Appointments Primary Care Physician Name Of Family Doctor/PCP: Dr. Pond Primary Care Contact Information Discharge Discharge Address: [address] [place], [place] [id number]
[2025-02-16] MEDS: lamoTRIgine 25 MG TAB PO SCH (22:07)
--- NOTE | 2025-02-17 08:42 | Psychiatric Progress Note ---
Date of Service February 17, 2025 Impression / Recommendations Impression Diagnostically consistent with Schizoaffective Disorder Bipolar Type vs Mood/Psychotic Disorder due to Traumatic Brain Injury. Possible contribution from use of cannabis. Also suspect Generalized Anxiety Disorder. A: Mood continues to improve, tolerating lamictal initiation so far. No evidence of tardive dyskinesia on exam today but possible her chewing sensation is from this, recommend ongoing follow-up in outpatient setting with her psychiatric provider and consideration for VMAT2 inhibitor in the future if consistent involuntary movements emerge. Overall, I spent a total of 30 minutes on this case including meeting with the patient, reviewing the chart, nursing report, multidisciplinary team meeting, orders, and documentation. (1) Schizoaffective disorder: (2) Hyperprolactinemia: (3) Back pain: (4) Herpes: (5) Traumatic brain injury: Plan 02/17/2025: Continue current medications and tx plan 02/16/2025: -Start lamictal 25mg HS 02/15/2025: -Start amlodipine 5mg daily -Podiatry consult in outpatient setting, appreciate hospitalist recommendations, will offer foot soaks as possible 02/14/25 Monitor BP. Increased Seroquel to 50mg qhs. Orajel prn for mouth ulcers Hospitalist consult requested for right big toe inflammation. 02/13/25 Admitted to [facility] ([facility]) on q15 min checks (behavioral with suicide precautions) for safety. Group, recreational, and milieu therapies + individual and family sessions as appropriate. HBA1c, fasting lipid profile, prolactin level ordered. Resume Seroquel 25mg qhs with plan to titrate as tolerated. Have discussed alternatives such as Lamictal. Continue prn clonazepam for anxiety. Next Invega Hayfera shot due late April/early May (last administered Dec 02 2024). Continue other home medications at current doses. Inventory Assets Strengths: History of being engaged in treatment. Supportive mother and boyfriend. Stable housing. Good response to medication. Denied suicide attempts. Needs: Stabilization. Suicide Risk Level Suicide Risk Level: Moderate (q15 min suicide checks) (depression with SI but lessening and feels safe and able to ask for support) Risk Factors Assessment Male: No : Yes Do You Have Access To A Gun?: No Health Problems: Yes Mental Health Diagnoses: Yes Substance Use Disorders: No (occasional cannabis use reported) Previous Attempt: No Family History of Suicide: Yes Previous Psychiatric Hospitalization: Yes Hopelessness: No Protective Factors Assessment : No (stable relationship since 2019) Responsible for Young Children: No Employed: No Stable Relationships: Yes Supportive Family: Yes Good Rapport with Provider: Yes Absence of Any Risk Factors Above: No Interval History Identifying Information 39-year-old F who currently lives in with her mother and boyfriend, has a history of Schizoaffective disorder, s/p TBI, irregular menstrual cycles, herpes. She was admitted on 02/12/25 21:31 on a 201 voluntary commitment for depressed mood, panic symptoms, and suicidal ideation over the past 3months. Chief Complaint "Not bad, I feel pretty good". Review of Systems Sleep Information Total Hours of Sleep: 7 Meal Information Percent Meal Consumed - Breakfast: 100 Percent Meal Consumed - Lunch: 100 Percent Meal Consumed - Dinner: 100 Subjective Subjective Patient was seen & assessed and interval progress reviewed with treatment team. Rated her mood as "calm" last night. Slept well. Today reports her mood is improving. Notes that "my memory is crap but that's typical" since her TBI. She denies any new medication side effects. Does sometimes notice an involuntary-type movement of chewing on one side of her mouth. AIMS exam score of 0, no notable involuntary movements but discussed that possible this is early presentation of tardive dyskinesia and recommended she discuss with her outpatient psychiatrist if symptoms worsen or do not improve. No indication for VMAT2 inhibitor at this time, but discussed with her that this could be an option in the future and goal of potentially tapering Seroquel in the future to lessen antipsychotic load. Physical Exam Psychiatric Orientation: alert, oriented to person, oriented to place, oriented to time and cooperative Apperance: appropriately dressed, appropriately groomed and appeared stated age Eye Contact: good eye contact Motor Behavior: steady gait and station and no abnormal motor movements Speech: normal rate/rhythm/volume of speech Affect: + flat affect Mood: + depressed mood Thought Process: + concrete thought process Thought Content: reality based without delusions Suicidal Thoughts: denies suicidal thoughts, denies suicidal plan and denies suicidal intent Homicidal Thoughts: denies homicidal thoughts, denies homicidal plan and denies homicidal intent Hallucinations: no auditory hallucinations, no visual hallucinations and no tactile hallucinations Cognition: recent memory grossly intact, remote memory grossly intact, attention grossly intact and language grossly intact Insight: + limited insight Judgment: + fair judgement Vital Signs (Past 24 Hours) Last Vital Signs Temp 36.7 C 02/17/25 06:24 Pulse 94 H 02/17/25 06:25 Resp 17 02/17/25 06:24 BP 157/83 H 02/17/25 06:25 Pulse Ox 97 02/17/25 06:24 O2 Del Method Room Air 02/17/25 06:24 Results & Data ([facility]) Current Inpatient Medications Current Inpatient Medications: Current Inpatient Medications Acetaminophen (Acetaminophen 325 Mg Tab) 650 mg PO Q4H PRN PRN Reason: Headache or Minor Fever Stop: 03/14/25 22:09 Last Admin: 02/16/25 07:14 Dose: 650 mg Al Hydrox/Mg Hydrox/Simethicone (Aluminum/Magnesium Susp 30 Ml Udc) 30 ml PO Q4H PRN PRN Reason: GI Upset Stop: 03/14/25 22:09 Amlodipine Besylate (Amlodipine Besylate 5 Mg Tab) 5 mg PO QAM JOSEF Stop: 03/18/25 08:59 Last Admin: 02/16/25 08:35 Dose: 5 mg Atorvastatin Calcium (Atorvastatin 40 Mg Tab) 80 mg PO QAM JOSEF Stop: 03/15/25 08:59 Last Admin: 02/16/25 08:35 Dose: 80 mg Benzocaine (Benzocaine 20% (Orajel) 11.9 Gm Tube) 1 appln MT Q6H PRN PRN Reason: To gum ulcers Stop: 03/16/25 11:16 Bismuth Subsalicylate (Bismuth Subsalicylate 262 Mg Chew) 2 tab PO Q30M PRN PRN Reason: Loose Stool/Diarrhea Stop: 03/14/25 22:09 Clonazepam (Clonazepam 0.5 Mg Tab) 0.5 mg PO BID PRN PRN Reason: Anxiety Stop: 03/14/25 22:13 Last Admin: 02/14/25 19:33 Dose: 0.5 mg Hydroxyzine HCl (Hydroxyzine Hcl 25 Mg Tab) 50 mg PO HSZ PRN PRN Reason: Insomnia Stop: 03/14/25 22:09 Last Admin: 02/13/25 02:05 Dose: 50 mg Hydroxyzine HCl (Hydroxyzine Hcl 25 Mg Tab) 25 mg PO Q4H PRN PRN Reason: Anxiety Stop: 03/14/25 22:09 Lamotrigine (Lamotrigine 25 Mg Tab) 25 mg PO [facility]; Protocol Stop: 03/18/25 21:59 Last Admin: 02/16/25 22:07 Dose: 25 mg Lidocaine (Lidocaine 5% 1 Patch) 1 patch TD QAM [facility] Stop: 03/15/25 14:14 Last Admin: 02/16/25 08:35 Dose: 1 patch Magnesium Hydroxide (Magnesium Hydroxide Susp 30 Ml Udc) 30 ml PO DAILY PRN PRN Reason: Constipation Stop: 03/14/25 22:09 Metformin HCl (Metformin Hcl 500 Mg Tab) 500 mg PO BIDM [facility] Stop: 03/15/25 17:44 Last Admin: 02/16/25 17:32 Dose: 500 mg Miscellaneous (Remove Nicoderm Patch) 1 each N/A DAILY@2100 [facility] Stop: 03/15/25 20:59 Last Admin: 02/16/25 22:13 Dose: 1 each Miscellaneous (Remove Lidoderm Patch) 1 each N/A DAILY@2100 JOSE[facility] Stop: 03/15/25 20:59 Last Admin: 02/16/25 22:13 Dose: 1 each Nicotine (Nicotine 21 Mg/24 Hr Tdsy) 1 patch TD [facility] Stop: 03/15/25 08:59 Last Admin: 02/16/25 08:36 Dose: 1 patch Nicotine Polacrilex (Nicotine Polacrilex 2 Mg Gum) 2 piece MT Q2H PRN PRN Reason: smoking cessation Stop: 03/14/25 22:30 Last Admin: 02/14/25 13:38 Dose: 1 piece Quetiapine Fumarate (Quetiapine Fumarate 25 Mg Tablet) 50 mg PO [facility] Stop: 03/16/25 21:59 Last Admin: 02/16/25 22:07 Dose: 50 mg Sodium Chloride (Sodium Chloride 0.65% Na Soln 45 Ml ([place])) 1 - 2 sprays NA PRN PRN PRN Reason: Nasal Dryness/Congestion Stop: 03/14/25 22:09 Mental Health & Subst Abuse Tx Psychiatrist Name of Psychiatrist: Dr. Damian Juarez Psychiatrist's Therapist Name of Therapist: n/a Feeder Catcher Name of Feeder Catcher: n/a Post Discharge Appointments Primary Care Physician Name Of Family Doctor/PCP: Dr. Pond Primary Care Specialist Name of Specialist: Dr. Abdiaziz Oconnell [facility] (Child Daycare Worker) Phone Number for Specialist: [phone] Contact Information Discharge Discharge Address: [address] [place] [address]
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
== END 2025-02-18 13:03 | disposition home or self-care (01) | DRG 885 ==
LOC: ED 16:10 → 3S 21:24 → SUATTDRO 21:31